=== PATIENT | female | born 1960 | race Caucasian/White ===

== ENCOUNTER → 2023-08-29 08:03 | Outpatient (REF) | payer OTHER, SELFPAY | LOC: RAD 08:03 | PROVIDERS: ATTENDING PHYSICIAN Obstetrics & Gynecology; FAMILY PHYSICIAN Internal Medicine | DX: Z78.0 Asymptomatic menopausal state (principal) | CPT/HCPCS: 77080 ==

== ENCOUNTER → 2023-12-23 07:59 | Outpatient (REF) | payer OTHER, SELFPAY | LOC: MRI 3T 07:59 | PROVIDERS: ATTENDING PHYSICIAN Internal Medicine | DX: M25.551 Pain in right hip (principal) | CPT/HCPCS: 73721 ==

== ENCOUNTER 2024-01-25 16:05 | Outpatient (RCR) | payer OTHER, SELFPAY | END 2024-01-25 23:59 | disposition home or self-care (01) | LOC: RPT 16:05 | PROVIDERS: ATTENDING PHYSICIAN Physician Assistant Medical; FAMILY PHYSICIAN Internal Medicine | DX: M16.11 Unilateral primary osteoarthritis, right hip (principal); S73.191D Other sprain of right hip, subsequent encounter; X58.XXXD Exposure to other specified factors, subsequent encounter; Z73.6 Limitation of activities due to disability | CPT/HCPCS: 97110; 97112; 97162 ==

== ENCOUNTER 2024-02-26 10:57 | Outpatient (RCR) | payer OTHER, SELFPAY | END 2024-03-04 07:26 | disposition home or self-care (01) | LOC: RPT 10:57 | PROVIDERS: ATTENDING PHYSICIAN Physician Assistant Medical; FAMILY PHYSICIAN Internal Medicine | DX: M16.11 Unilateral primary osteoarthritis, right hip (principal); S73.191D Other sprain of right hip, subsequent encounter; M76.01 Gluteal tendinitis, right hip; Z73.6 Limitation of activities due to disability | CPT/HCPCS: 97110; 97112 ==

== ENCOUNTER 2024-09-11 06:21 | Day surgery (SDC) | payer OTHER, SELFPAY | END 2024-09-11 10:17 | disposition home or self-care (01) | LOC: GI 06:21 | PROVIDERS: ATTENDING PHYSICIAN Internal Medicine Gastroenterology | DX: Z12.11 Encounter for screening for malignant neoplasm of colon (principal); D12.3 Benign neoplasm of transverse colon; D12.4 Benign neoplasm of descending colon; K57.30 Diverticulosis of large intestine without perforation or abscess without bleeding; K64.8 Other hemorrhoids; K44.9 Diaphragmatic hernia without obstruction or gangrene; K31.89 Other diseases of stomach and duodenum; R11.2 Nausea with vomiting, unspecified; Z86.0101 Personal history of adenomatous and serrated colon polyps | CPT/HCPCS: 45380; 43239; 88305; 88342 ==